=== PATIENT | female | born 1960 | race Two or more races ===

== ENCOUNTER 2020-10-03 13:21 | Outpatient (CLI) | payer MEDICARE | END 2020-10-03 23:59 | disposition home or self-care (01) | LOC: LAB 13:21 | PROVIDERS: ATTEND Specialist | DX: Z01.812 Encounter for preprocedural laboratory examination (principal); Z20.822 Contact with and (suspected) exposure to COVID-19 | CPT/HCPCS: C9803; U0003 ==

== ENCOUNTER 2020-10-08 10:42 | Day surgery (SDC) | payer MEDICARE ==
[~2020-10-08] VITALS: Ht 162.6 cm; Wt 108.0 kg
[~2020-10-08 10:42] MED LIST: ANESTHESIA TRAY IN PYXIS 1 EA TRAY MC ONE; BUPIVACAINE 0.5 % PF 150 MG/30 ML VIAL ONE; EPINEPHRINE (1:1000) 1 MG/ML AMPUL ONE
[2020-10-08] MEDS ORDERED: POLYMYXIN B SULFATE 500,000 UNITS ONE (12:51)
[2020-10-08] MEDS ORDERED: FENTANYL PF 100MCG/2ML AMPUL ONE ×3 (12:54→14:53)
[2020-10-08] MEDS ORDERED: MIDAZOLAM HCL 2 MG/2ML VIAL ONE (12:54)
[2020-10-08] MEDS ORDERED: ROCURONIUM BROMIDE 50 MG/5 ML ONE (12:56)
[2020-10-08] MEDS ORDERED: SEVOFLURANE 250 ML BOTTLE IH ONE (12:59)
[2020-10-08] MEDS ORDERED: methylPREDNISolone ACETATE 80 MG/ML VIAL ONE (13:44)
[2020-10-08] MEDS ORDERED: ONDANSETRON HCL/PF 4 MG/2 ML VIAL ONE (14:41)
[2020-10-08] MEDS ORDERED: HYDROCODONE/APAP 5/325MG TABLET ONE (15:01)
== END 2020-10-08 16:20 | disposition home or self-care (01) ==
LOC: DS 10:42
PROVIDERS: ATTEND Specialist
DX: M75.41 Impingement syndrome of right shoulder (principal); M65.811 Other synovitis and tenosynovitis, right shoulder; I10 Essential (primary) hypertension; J45.909 Unspecified asthma, uncomplicated; F32.9 Major depressive disorder, single episode, unspecified; G89.29 Other chronic pain; Z98.890 Other specified postprocedural states; Z79.899 Other long term (current) drug therapy
CPT/HCPCS: 29822; 29826; 64721; A4217; A6253; J0171; J0690; J1040; J1100; J2250; J2405; J2704; J3010 ×3; J3490 ×2